=== PATIENT | female | born 1985 | race Caucasian/White ===

== ENCOUNTER 2022-06-04 15:28 | Outpatient (CLI) | payer OTHER, SELFPAY | END 2022-06-04 15:29 | disposition home or self-care (01) | PROVIDERS: PCP Internal Medicine; Visit Provider Obstetrics & Gynecology | DX: Z01.812 Encounter for preprocedural laboratory examination (principal); N81.4 Uterovaginal prolapse, unspecified | CPT/HCPCS: 36415; 86850; 86900; 86901 ==

== ENCOUNTER 2022-06-07 00:32 | Day surgery (SDC) | payer OTHER, SELFPAY ==
[2022-05-29 11:54] VITALS: BMI 29.9
--- NOTE | 2022-05-29 12:00 | PC.NURSE ---
Report to the Outpatient Waiting Room, entrance under the green pavilion located off [facility], at time 6:30 on date 06/07/22. Planned Procedure Time: 8:30. Time changes happen often and if your time is changed the preop area will call you the afternoon before. - You and your visitor will be asked to self-screen and do not enter if you have any COVID symptoms. - Only one visitor is requested with a max of two and NO children visitors are allowed at this time. - The patient visitor may be requested to leave or wait in car when not with patient due to distancing restrictions. - A mask is optional within the hospital. Patients may have clear liquids (water, carbonated beverages, clear teas, apple juice) until 3 hours prior to surgery (5:30) with a maximum of 20 ounces. - No food from midnight until time of surgery Take the following medications with a SIP of water the morning of surgery: N/A Medications to discontinue per physician: N/A Date to take last dose: N/A Please no make-up, nail australian, hairspray, perfume, deodorant, or body powder the day of surgery. No jewelry (including any body piercings) or valuables the day of surgery, leave them at home. Please take a shower or bath the night before, or the morning of, surgery with an antibacterial soap. Wear comfortable, loose fitting clothing. - Jewelry must be removed prior to entering the operating room. Rings and piercings that are not removed may be cut off. - The hospital will not accept responsibility for valuables. - Please leave all valuables, including medications, at home the day of surgery. If you are going home after surgery, a licensed cab driver must drive you home. - NO public transportation without another adult if you receive anesthesia. - We recommend that an adult stay with you for 24 hours following discharge. - We also recommend that you do not drive, make important decision, drink alcoholic beverages, or take any drugs that were not prescribed by your health care provider for at least 24 hours after your discharge time. Follow any additional instructions given to you from your surgeon. If you or anyone in your household have experienced Covid symptoms in the past week, please notify your surgeon or the nurse liaison at the phone number below for possible testing. Telephone instructions given to PT - TRUONG ELIZABETH and asked if any additional questions and then verbalized understanding. Patient advised to call surgeon office or pre surgery nurse liaison [phone] if any additional questions.
--- NOTE | 2022-06-06 08:56 | WPDANESEPPF ---
Anes - Initial Pre Proc Eval Procedure: Operation Date: 06/07/22 08:30 Proposed Procedures p Robotic Assisted Total Laparoscopic Hysterectomy, Bilateral Salpingectomy - Yoandy Freedman MD <Aaron Berkowitz MD - Last Filed: 06/07/22 11:25> Date/Time: 06/06/22 08:56 <Aaron Berkowitz MD - Last Filed: 06/07/22 11:25> Surgeon: Yoandy Freedman MD <Aaron Berkowitz MD - Last Filed: 06/07/22 11:25> Pre Op Diagnosis: uterine prolapse <Aaron Berkowitz MD - Last Filed: 06/07/22 11:25> Patient Data Age: 36 Gender: F Height: 1.65 m Weight: 81.65 kg <Aaron Berkowitz MD - Last Filed: 06/07/22 11:25> Allergies Allergy/AdvReac Type Severity Reaction Status Date / Time hydrocodone AdvReac Mild Nausea Verified 06/07/22 07:35 morphine AdvReac Mild Nausea and Verified 06/07/22 07:35 Vomiting scopolamine AdvReac Blurry Verified 06/07/22 06:54 Vision <Aaron Berkowitz MD - Last Filed: 06/07/22 11:25> Home Medications Medication Instructions Recorded Confirmed Type No Home Medications 10/10/21 05/29/22 History <Aaron Berkowitz MD - Last Filed: 06/07/22 11:25> Patient hx anesthesia problems: none <Karel Briones DO - Last Filed: 06/07/22 08:47> Family hx anesthesia problems: none <Karel Briones DO - Last Filed: 06/07/22 08:47> Results Review: All pre-operative results and documents have been reviewed as part of the pre-operative evaluation. <Aaron Berkowitz MD - Last Filed: 06/07/22 11:25> PMFSH Past Medical History Medical History: Medical History Abnormal Pap smear of cervix (~2009) LGSIL?? Endometriosis Ovarian cyst PONV (postoperative nausea and vomiting) Smoker <Aaron Berkowitz MD - Last Filed: 06/07/22 11:25> Surgical History Surgical History: Surgical History History of cervical cerclage History of gynecological procedure laparoscopic ovarian cyst x 2 History of gynecological procedure D&C retained placenta History of tonsillectomy <Aaron Berkowitz MD - Last Filed: 06/07/22 11:25> Family History Family History: Family History Mother Hypertension Father High cholesterol Grandparent Heart disease maternal grandfather High cholesterol Malignant neoplasm of prostate maternal grandfather <Aaron Berkowitz MD - Last Filed: 06/07/22 11:25> Social History Social History: Social History Smoking status: Current every day smoker Tobacco type: e-cigarettes/vaping Alcohol intake: current Drinks per week: 4 Alcohol use details: social Substance use: never Substance use type: does not use Living arrangements: with family Additional living arrangements comments: engaged Occupation/Education: occupation Additional occupation/education comments: auditor/quality Gender identity (if verbalized by the patient): Female Sexual Orientation (if Verbalized by the Patient): Straight or Heterosexual Spiritual care concerns: No <Aaron Berkowitz MD - Last Filed: 06/07/22 11:25> Anes - Eval Final PreProcedure Day of Procedure 06/06/22 08:56 <Aaron Berkowitz MD - Last Filed: 06/07/22 11:25> Patient weight: obese <Aaron Berkowitz MD - Last Filed: 06/07/22 11:25> Heart: regular rate and rhythm <Aaron Berkowitz MD - Last Filed: 06/07/22 11:25> Lungs: clear to auscultation and normal air movement <Aaron Berkowitz MD - Last Filed: 06/07/22 11:25> Airway: Mallampati scale class II <Aaron Berkowitz MD - Last Filed: 06/07/22 11:25> Neurological: alert and oriented <Aaron Berkowitz MD - Last Filed: 06/07/22 11:25> Last oral intake: >/= 8 hours <Aaron Berkowitz MD - Last Filed: 06/07/22 11:25> ASA classification: II <
--- NOTE | 2022-06-06 16:23 | PM.IMHP ---
H&P: HPI History of Present Illness Date/Time: 06/06/22 16:23 36-year-old female presents with complaints of vaginal fullness and pressure, and discomfort with intercourse. Evaluation this point his consist of ultrasound which was normal. She does relate this is more of an issue if she has been up for long period time or with heavy lifting and straining. She denies any significant bleeding issues, and also has no urinary or stool complaints. also relates history of endometriosis diagnosed laparoscopically, though I have not performed these procedures and have not seen operative reports. Chief Complaint: Uterine prolapse Review of Systems Review of Systems: All systems reviewed & are unremarkable except as noted in HPI and below PMFSH Past Medical History Medical History Abnormal Pap smear of cervix (~2009) LGSIL?? Endometriosis Ovarian cyst PONV (postoperative nausea and vomiting) Smoker Surgical History Surgical History History of cervical cerclage History of gynecological procedure laparoscopic ovarian cyst x 2 History of gynecological procedure D&C retained placenta History of tonsillectomy Family History Family History Mother Hypertension Father High cholesterol Grandparent Heart disease maternal grandfather High cholesterol Malignant neoplasm of prostate maternal grandfather Social History Social History Smoking status: Current every day smoker Tobacco type: e-cigarettes/vaping Alcohol intake: current Drinks per week: 4 Alcohol use details: social Substance use: never Substance use type: does not use Living arrangements: with family Additional living arrangements comments: engaged Occupation/Education: occupation 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 Gender identity (if verbalized by the patient): Female Sexual Orientation (if Verbalized by the Patient): Straight or Heterosexual Spiritual care concerns: No Meds Home Medications and Allergies Home Medications Medication Instructions Recorded Confirmed Type No Home Medications 10/10/21 05/29/22 History Allergies Allergy/AdvReac Type Severity Reaction Status Date / Time hydrocodone AdvReac Mild Nausea Unverified 05/29/22 11:53 morphine AdvReac Mild Nausea and Unverified 05/29/22 11:53 Vomiting scopolamine AdvReac Blurry Verified 05/29/22 11:53 Vision Exam Const: General: cooperative, healthy appearing and comfortable Resp: Effort & Inspection: normal respiratory effort Auscultation: clear to auscultation bilaterally Cardio: Rate: regular rate Rhythm: regular rhythm GI: Inspection: normal to inspection Auscultation: normal bowel sounds : Speculum Exam - Vagina: normal appearance of the vagina Speculum Exam - Cervix: normal appearance of the cervix ( Prolapse noted) Bimanual exam- vagina & uterus: normal bimanual exam ( uterus slightly tender) Bimanual Exam- Adnexa, other: normal adnexae Assessment and Plan Assessment and plan (1) Uterine prolapse: Code(s): N81.4 - Uterovaginal prolapse, unspecified Status: Acute (2) Dyspareunia: Status: Acute (3) Endometriosis determined by laparoscopy: Code(s): N80.9 - Endometriosis, unspecified Status: Acute Plan 1. Proceed with robotic assisted laparoscopic hysterectomy with ovarian preservation.
[2022-06-07] VITALS (12 sets, daily range): BP systolic 120–138; BP diastolic 74–94; PULSE 53–104; RESP 12–20; TEMP 36.4–37.1; O2SAT 70–100
[2022-06-07] MEDS: ACETAMINOPHEN 500 MG TABLET 1000 MG PO (06:50)
[2022-06-07] MEDS: LACTATED RINGERS 1,000 ML 30 ML IV CONT ×2 (07:05→10:27)
[2022-06-07] MEDS: KETOROLAC 15 MG/ML VIAL (*BKC) IV PUSH (07:40)
--- NOTE | 2022-06-07 08:34 | WPDHPUPDATE1 ---
History and Physical Update Update Date/Time: 06/07/22 08:34 History and Physical has been reviewed, including an updated exam of the patient. There are NO changes in the patient's condition. Risks, benefits, and alternatives have been discussed and questions answered. Patient agrees to proceed with procedure.
[2022-06-07] MEDS: ceFAZolin 2 GM/D5W 50 ML 2 GM/50 ML BAG IVPB (08:40)
--- NOTE | 2022-06-07 10:17 | P.OP_ITS ---
Procedure Note - Detailed Date of Procedure 06/07/22 Pre-op Diagnosis uterine prolapse Post-op Diagnosis Same Procedure Performed 1. Robotic assisted laparoscopic hysterectomy with bilateral salpingectomy (ovarian preservation) Surgeon Yoandy Freedman MD Anesthesia General Findings uterus tubes and ovaries without significant abnormality. Uterine prolapse to the introitus. Description of Procedure Patient prepped draped usual manner for this procedure. Cervical instruments were placed for uterine mobility. Abdominal trocar sites were marked and placed under direct visualization and attached to the de Magno system, and instruments were placed as well. Surgeon moved to console and 1st the tubes removed bilaterally by cauterizing cutting mesial salpinx. Round ligament was cauterized and cut bilaterally and bladder flap was developed without dif ficulty. Utero-ovarian ligament was then cauterized and cut bilaterally and the uterine vessels were skeletonized. These were cauterized and cut. Anterior colpotomy incision was made and this was carried circumferentially throughout the cervix to separate the cervix from the vagina. Uterus was delivered into the vagina. Cuff was closed using V lock suture from the right and the left angle left angle to the right angle. We had a small amount of oozing from the left angle which was rendered hemostatic using another V lock suture to reapproximate the left angle. Irrigation was undertaken, there was no bleeding, and Juan was placed empirically. Gas allowed to escape incisions approximated using 4-0 Monocryl the patient was sent to recovery room in stable condition. Estimated Blood Loss 100 Drains No Packing No Pathology Yes Complications No immediate complications Condition Stable Disposition PACU [facility] Billing Surgery - Charge Forward: Surgery Billing
[2022-06-07] MEDS: fentaNYL CITRATE INJ (*CRX) 100 MCG/2 ML VIAL 25 MCG IV PUSH ×4 (11:14→11:30)
[2022-06-07] MEDS: DEXTROSE 5%/0.45% SOD CHL 1,000 ML 125 ML IV CONT (12:35)
[2022-06-07] MEDS: KETOROLAC 30 MG/ML VIAL (*BKC) IV PUSH (12:37)
--- NOTE | 2022-06-07 12:59 | PC.NURSE ---
This patient, Alice Carranza, was received from PACU on 06/07/22 at 1215. Patient/family oriented to unit policies and routines
[2022-06-07] MEDS: traMADol HCL (*CRX) 50 MG TABLET PO (14:59)
[2022-06-07] MEDS: SIMETHICONE 80 MG TAB.CHEW PO ×3 (15:00→23:08)
[2022-06-07] MEDS: ACETAMINOPHEN/CODEINE (*CRX) 300/30 MG TABLET 1 TAB PO (16:37)
[2022-06-07] MEDS: ONDANSETRON INJ 4 MG/2 ML VIAL IV PUSH (17:56)
[2022-06-07] MEDS: traMADol HCL (*CRX) 50 MG TABLET 100 MG PO ×2 (19:31→23:08)
[2022-06-08 04:00] VITALS: BP 118/78; PULSE 70; RESP 18; TEMP 37.7; O2SAT 97
[2022-06-08] MEDS: SIMETHICONE 80 MG TAB.CHEW PO ×2 (04:20→08:32)
[2022-06-08] MEDS: traMADol HCL (*CRX) 50 MG TABLET 100 MG PO ×2 (04:20→08:33)
[2022-06-08 05:14] LABS: Basophils Absolute Auto 0.1 K/mm3 (0.0-0.1); Basophils Percent Auto 0.3 % (0.2-1.2); Eosinophils Absolute Auto 0.1 K/mm3 (0-0.3); Eosinophils Percent Auto 0.7 % (0-4.4); Hematocrit 34.6 % (37.0-47.0); Hemoglobin 11.6 g/dL (12.0-15.0); Immature Granulocyte Absolute 0.05 K/mm3 (0.00-0.031); Immature Granulocyte Percent A 0.3 % (0-0.5); Lymphocytes Percent Auto 17.2 % (18.3-44.2); Mean Corpuscular HGB Conc 33.5 g/dl (32-36); Mean Corpuscular Hemoglobin 30.4 pg (26-34); Mean Corpuscular Volume 90.8 fl (80-100); Mean Platelet Volume 10.8 fl (7.4-10.4); Monocytes Percent Auto 6.5 % (2.6-8.5); Neutrophils Absolute Auto 11.4 K/mm3 (1.3-6.7); Platelet Count Result 265 k/mm3 (150-375); Red Blood Count 3.81 M/mm3 (4.2-5.4); Red Cell Distribution Width 12.9 % (11.5-14.5); White Blood Count 15.2 K/mm3 (4.5-10.0)
[2022-06-08 07:55] VITALS: BP 108/72; PULSE 81; RESP 16; TEMP 36.8; O2SAT 98
--- NOTE | 2022-06-08 08:04 | P.DS_ITS ---
DS: Admitting Diagnosis Discharge Date 06/08/22 Admitting Diagnosis endometriosis Uterine prolapse Dyspareunia DS: Discharge Diagnosis Discharge Diagnosis (1) Endometriosis determined by laparoscopy: Code(s): N80.9 - Endometriosis, unspecified Status: Acute (2) Dyspareunia: Status: Acute (3) Uterine prolapse: Code(s): N81.4 - Uterovaginal prolapse, unspecified Status: Acute DS: Summary Hospital Course Hospital Course: patient was admitted for robotic assisted total laparoscopic hysterectomy and bilateral salpingectomy for uterine prolapse, dyspareunia, endometriosis. The above procedure was performed with no complications. She is doing well post op. She states her pain is well controlled with PO medications. She reports minimal bleeding. She is ambulating up to the chair. Her cueto catheter was removed. She is tolerating PO without N/V. She reports passing flatus. Status at Discharge Overall status at discharge: patient is progressing back to baseline Time Spent with Patient Time attestation: Total time spent providing and/or coordinating discharge services: Time spent: Less than 30 minutes Exam Const: General: comfortable and no acute distress Limitations: no limitations Resp: Effort & Inspection: normal respiratory effort Auscultation: clear to auscultation bilaterally Cardio: Rate: regular rate Rhythm: regular rhythm GI: Inspection: non-distended GI Palp: Yes Soft to palpation, Yes Tenderness to palpation present (GI) (milder tenderness to deep palpation) and No Guarding due to palpation present (GI) Auscultation: normal bowel sounds Other: incisions C/D/I covered with dermabond Urinary Catheter: Urinary Catheter: urine clear Skin: General skin exam: normal color Extrem: General: normal to inspection Psych: Mental Status: mental status grossly normal Affect: normal affect DS: Data Data Completed and Pending Pending studies at discharge: Pending at discharge 06/07/22 09:58 Surgical [PTH] Routine Labs on day of discharge: Labs from last 24 hours 06/08/22 04:39 WBC 15.2 H RBC 3.81 L Hgb 11.6 L Hct 34.6 L MCV 90.8 MCH 30.4 MCHC 33.5 RDW 12.9 Plt Count 265 MPV 10.8 H Immature Gran % (Auto) 0.3 Neut % (Auto) 75.0 H Lymph % (Auto) 17.2 L Bullock % (Auto) 6.5 Eos % (Auto) 0.7 Baso % (Auto) 0.3 Lymph # (Auto) 2.60 Bullock # (Auto) 1.0 H Eos # (Auto) 0.1 Baso # (Auto) 0.1 Abs Immat Gran (auto) 0.05 H Absolute Neuts (auto) 11.4 H Absolute Nucleated RBC 0.0 Nucleated RBC % 0.0 Discharge Plan Discharge Patient Disposition: Home, Self-Care Patient Instructions: Laparoscopic Hysterectomy (DC) Stand Alone Forms: General Discharge Instructions Follow-up/Referrals: Yoandy Freedman MD [Physician] - Discharge Medications: New ibuprofen 600 mg Tablet 600 mg PO Q6H PRN (Reason: Cramping) Qty: 30 0RF ondansetron HCl 4 mg tablet 4 mg PO Q6H PRN (Reason: nausea and vomiting) Qty: 30 0RF tramadol 100 mg capsule,ER biphase 24 hr 25-75 100 mg PO Q4H Qty: 30 0RF
[2022-06-08] MEDS: ONDANSETRON HCL ODT 4 MG TABLET PO (11:13)
== END 2022-06-08 12:22 | disposition home or self-care (01) ==
LOC: ANHSURGERY 06:22 → ANHOB2 13:49
PROVIDERS: PCP Internal Medicine; Visit Provider Obstetrics & Gynecology
PROC: (CPT 58571; principal; 2022-06-07 08:30)
DX: N81.4 Uterovaginal prolapse, unspecified (principal); N84.1 Polyp of cervix uteri; N72 Inflammatory disease of cervix uteri; N83.8 Other noninflammatory disorders of ovary, fallopian tube and broad ligament; N94.10 Unspecified dyspareunia; F17.290 Nicotine dependence, other tobacco product, uncomplicated; E66.9 Obesity, unspecified; Z68.29 Body mass index [BMI] 29.0-29.9, adult
CPT/HCPCS: 58571; S2900; 36415; 85025; 88307; 99199; A9270; J0690; J1100; J1170; J1200; J1885; J2250; J2405; J2704; J2710; J3010; J7030; J7120